=== PATIENT | male | born 1990 | race Hispanic/Latino ===

== ENCOUNTER 2017-07-22 11:53 | Emergency (ER) | payer BC, SELFPAY ==
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
== END 2017-07-22 14:27 | disposition home or self-care (01) ==
LOC: ER 11:53
DX: S16.1XXA Strain of muscle, fascia and tendon at neck level, initial encounter (principal); V49.40XA Driver injured in collision with unspecified motor vehicles in traffic accident, initial encounter
CPT/HCPCS: 70450; 72125; 99284